=== PATIENT | male | born 1990 | race Two or more races ===

== ENCOUNTER 2016-07-19 07:45 | Emergency (ER) | payer BC, OTHER ==
[2016-07-19 07:58] VITALS: BP 131/72; PULSE 93; TEMP 98; BMI 32.6
[2016-07-19] MEDS ORDERED: KETOROLAC TROMETHAMINE 60 MG/2 ML VIAL IM ONE (08:34)
[2016-07-19] MEDS ORDERED: CYCLOBENZAPRINE HCL 10 MG TABLET (FP) PO ONE (08:34)
[2016-07-19] MEDS ORDERED: KETOROLAC TROMETHAMINE 60 MG/2 ML VIAL ONE (08:36)
[2016-07-19] MEDS ORDERED: CYCLOBENZAPRINE HCL 10 MG TABLET (FP) ONE (08:38)
--- NOTE | 2016-07-19 08:43 | PDOC ---
History of Present Illness - General Chief Complaint: Pain Stated Complaint: SHOULDER INJURY (WORK) Time Seen by Provider: 07/19/16 08:16 History Source: Patient Exam Limitations: No Limitations - History of Present Illness Initial Comments: 07/19/16 13:09 States works in [employer], and yesterday was moving a heavy tree and felt an acute onset of pain to bilateral shoulders. States felt a pulling to his muscles , felt no pop or crack and feels that his strength is even. No elbow, clavicle or scapular pain, no neck pain, denies numbness or tingling to hand. States pain is primarily in the shoulder capsule in the muscle groups 07/19/16 13:10 Occurred: reports: yesterday Severity: reports: mild, moderate Pain Location: reports: upper extremity (bilateral shoulder ) Modifying Factors: improves with: None, cold therapy Loss of Consciousness: no loss of consciousness Associated Symptoms (Fall): denies symptoms Past History - Travel Traveled outside of the country in the last 30 days: No Close contact w/someone who was outside of country & ill: No - Past Medical History Allergies/Adverse Reactions: Allergies Allergy/AdvReac Type Severity Reaction Status Date / Time No Known Allergies Allergy Verified 07/19/16 07:54 Home Medications: Ambulatory Orders Cyclobenzaprine HCl [Flexeril 10 mg] 10 mg PO BID PRN #14 tablet 07/19/16 Anemia: No Asthma: No Cardiac Disorders: Yes (HEART MURMUR) COPD: No Diabetes: No HTN: No Hypercholesterolemia: No - Immunization History Td Vaccination: Yes TDAP Vaccination: Yes Immunization Up to Date: Yes - Psycho/Social/Smoking Cessation Hx Anxiety: No Suicidal Ideation: No Smoking Status: No Smoking History: Never smoked Number of Cigarettes Smoked Daily: 0 Information on smoking cessation initiated: No Hx Alcohol Use: Yes (SOCIAL) Drug/Substance Use Hx: No Substance Use Type: None Review of Systems - Review of Systems Able to Perform ROS?: Yes Is the patient limited Filipino proficient: Yes Constitutional: Yes: Symptoms Reported, See HPI, Malaise HEENTM: No: Symptoms Reported Respiratory: Yes: See HPI. No: Symptoms reported Cardiac (ROS): No: Symptoms Reported Musculoskeletal: Yes: Symptoms Reported All Other Systems: Reviewed and Negative *Physical Exam - Vital Signs Last Vital Signs Temp Pulse Resp BP Pulse Ox 98 F 93 H 18 131/72 100 07/19/16 07:51 07/19/16 07:51 07/19/16 07:51 07/19/16 07:51 07/19/16 07:51 - Physical Exam General Appearance: Yes: Nourished, Appropriately Dressed, Apparent Distress, Mild Distress HEENT: positive: BROCK, Normal ENT Inspection, TMs Normal, Pharynx Normal Neck: positive: Supple. negative: Tender Respiratory/Chest: positive: Lungs Clear, Normal Breath Sounds Gastrointestinal/Abdominal: positive: Soft Musculoskeletal: positive: Normal Inspection, Other (patient with tenderness reproduced against abduction and forward flexion to bilateral arms, is primarily in the deltoid muscle groups, has no bone tenderness to clavicle, before meals joint, or click scapula area. 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 Pain is reproduced against resistance to abduction and forward flexion. No neck tenderness). negative: Vertebral Tenderness Extremity: positive: Normal Inspection, Normal Range of Motion Integumentary: positive: Normal Color Neurologic: positive: flame channeler II-XII NML intact, Fully Oriented, Alert, Normal Mood/ Affect, Normal Response, Motor Strength 5/5 Progress Note - Progress Note Progress Note: Bilateral shoulder strain, will treat with NSAIDs and mild antispasmodic. Will follow up with Orth O in 2 days if not resolved for further testing and treatment *DC/Admit/Observation/Transfer Diagnosis at time of Disposition: Shoulder sprain Qualifiers: Encounter type: initial encounter Shoulder sprain type: unspecified sprain Laterality: unspecified laterality Qualified Code(s): S43.409A - Unspecified sprain of unspecified shoulder joint, initial encounter - Discharge Dispostion Disposition: HOME Condition at time of disposition: Stable Admit: No - Prescriptions Prescriptions: Cyclobenzaprine HCl [Flexeril 10 mg] 10 mg PO BID PRN #14 tablet PRN Reason: spasm - Referrals Referrals: John Topete MD [Staff Physician] - - Patient Instructions Printed Discharge Instructions: DI for Shoulder Sprain Additional Instructions: Rest, no heavy lifting or exercise until pain is resolved Hot soaks to neck and low back as often as possible/hot showers or Jacuzzis No massage or therapy until spasm is gone Continue ibuprofen 2-200 mg tablets every 6 hours for the next 3 days then as needed for pain and swelling Cyclobenzaprine 1-10mg every 8 hours as needed for spasm If not significant improvement within 24 hours with medication and rest regime, followup with private physician for change in medications and /or therapy. - Post Discharge Activity Work/School Note: Back to Work
== END 2016-07-19 08:55 | disposition home or self-care (01) ==
LOC: JER 07:45 → JERFT 07:45
PROC: 3E0233Z Introduction of Anti-inflammatory into Muscle, Percutaneous Approach (ICD-10-PCS; principal; 2016-07-19)
DX: S43.492A Other sprain of left shoulder joint, initial encounter (principal); S43.491A Other sprain of right shoulder joint, initial encounter; X50.0XXA Overexertion from strenuous movement or load, initial encounter; Y93.H2 Activity, gardening and landscaping; Y92.89 Other specified places as the place of occurrence of the external cause; Y99.0 Civilian activity done for income or pay
CPT/HCPCS: 99281-25